=== PATIENT | female | born 1995 | race Caucasian/White ===

== ENCOUNTER 2018-02-11 07:38 | Emergency (ER) | payer OTHER ==
[~2018-02-11] VITALS: Ht 160 cm; Wt 63.6 kg
[2018-02-11 07:46] VITALS: BP 115/66; PULSE 125; RESP 20; TEMP 98.7; O2SAT 100
[2018-02-11 08:15] LABS: AUTOMATED NEUTROPHIL # 8.4 TH/MM3 (1.8-7.7); BASOPHIL % 0.1 % (0.0-2.0); HEMATOCRIT 40.5 % (35.0-46.0); LYMPH % 8.5 % (9.0-44.0); LYMPHOCYTE # 0.9 TH/MM3 (1.0-4.8); MEAN CELL VOLUME 86.5 FL (80.0-100.0); MEAN CORPUSCULAR HEMOGLOBIN 29.9 PG (27.0-34.0); MEAN CORPUSCULAR HGB CONC 34.5 % (32.0-36.0); MEAN PLATELET VOLUME 9.5 FL (7.0-11.0); MONOCYTE # 0.8 TH/MM3 (0-0.9); NEUT % 83.4 % (16.0-70.0); PLATELET COUNT 237 TH/MM3 (150-450); RED BLOOD COUNT 4.68 MIL/MM3 (4.00-5.30); RED CELL DISTRIBUTION WIDTH 12.3 % (11.6-17.2); WHITE BLOOD COUNT 10.1 TH/MM3 (4.0-11.0)
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
[2018-02-11 08:36] LABS: BICARBONATE 21.8 MEQ/L (21.0-32.0); BLOOD UREA NITROGEN 6 MG/DL (7-18); CALCIUM 9.2 MG/DL (8.5-10.1); CHLORIDE 107 MEQ/L (98-107); CREATININE 0.94 MG/DL (0.50-1.00); GLOMERULAR FILTRATION RATE 76 ML/MIN (>89); GLUCOSE,RANDOM 107 MG/DL (74-106); SODIUM (NA) 140 MEQ/L (136-145)
[2018-02-11 14:30] VITALS: BP 124/77; PULSE 100; RESP 20; TEMP 98.8; O2SAT 100
[2018-02-11 18:07] VITALS: BP 120/74; PULSE 80; RESP 18; O2SAT 98
[2018-02-11 22:30] VITALS: BP 126/64; PULSE 66; RESP 18; TEMP 98.1; O2SAT 99
[2018-02-11 22:59] VITALS: BP 113/68; PULSE 92; RESP 18; TEMP 98.7; O2SAT 100
[2018-02-12 02:46] VITALS: BP 111/57; PULSE 95; RESP 18; TEMP 98.1; O2SAT 100
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
== END 2018-02-12 10:37 | disposition home or self-care (01) ==
LOC: NEPJ 07:38
DX: F43.25 Adjustment disorder with mixed disturbance of emotions and conduct (principal); F12.90 Cannabis use, unspecified, uncomplicated
CPT/HCPCS: 80048; 80307; 84443; 84703; 85025; 99283